=== PATIENT | female | born 1955 | race American Indian/Alaskan Native ===

== ENCOUNTER 2020-12-22 04:03 | Emergency (ER) | payer MEDICARE ==
[2020-12-22 04:19] VITALS: BP 142/73
== END 2020-12-22 04:20 | disposition left against medical advice (07) ==
LOC: ED 04:03
DX: R06.00 Dyspnea, unspecified (principal); Z53.21 Procedure and treatment not carried out due to patient leaving prior to being seen by health care provider

== ENCOUNTER 2022-02-23 17:56 | Emergency (ER) | payer MEDICARE | END 2022-02-23 19:00 | disposition left against medical advice (07) | LOC: ED 17:56 | DX: M25.041 Hemarthrosis, right hand (principal); Z53.21 Procedure and treatment not carried out due to patient leaving prior to being seen by health care provider ==